=== PATIENT | male | born 1990 | race Hispanic/Latino ===

== ENCOUNTER 2024-02-02 17:45 | Emergency (ER) | payer SELFPAY ==
[2024-02-02 17:55] VITALS: BP 133/74; PULSE 101; RESP 20; TEMP 37.9; O2SAT 98
--- NOTE | 2024-02-02 18:20 | ED.GENADULT ---
HPI - General Adult General Chief complaint: Skin/Abscess/Foreign Body Stated complaint: RASH History of Present Illness HPI narrative: 33-year-old male presented for complaint of poison genie rash to legs for 1 week. Has been using ivarest cream and taking Benadryl without significant improvement. Denies lip, tongue, or throat swelling, shortness of breath or wheezing. Denies changes to soap, detergent, lotion, or any other exposures. No one else in the house or any contacts with similar symptoms. Patient also reports body aches, fever, chills and sore throat last night. Endorses painful swallow. Took Tylenol about 1 hour lpta. Related Data Allergies Allergy/AdvReac Type Severity Reaction Status Date / Time No Known Allergies Allergy Verified 02/02/24 19:27 Review of Systems Review of Systems: CONSTITUTIONAL:reports body aches, fever, chills, sweats. EYES: Denies visual changes, redness, or discharge. ENT: reports sore throat Denies rhinorrhea, congestion, or otalgia. CARDIOVASCULAR: Denies chest pain, palpitations, or edema. RESPIRATORY: Denies dyspnea. GASTROINTESTINAL: Denies abdominal pain, nausea, vomiting, or diarrhea. SKIN: reports rash, itching MUSCULOSKELETAL: Denies back pain, joint pain, or myalgia. NEUROLOGIC: Denies headache Exam Narrative: GENERAL: Mildly Ill-appearing, no acute distress. EYES: conjunctivae clear ENT: Mucous membranes moist. TM pearly joyce with normal light reflex bilaterally; no tragal tenderness. Oropharynx erythematous without lesions. Tonsils enlarged 2+ with exudate. No drooling, no hoarseness, no trismus, uvula midline. No tripod positioning, hot potato voice, or soft palate swelling. NECK: Supple. No lymphadenopathy CHEST: Clear to auscultation, breath sounds equal. No respiratory distress, speaks in full sentences. HEART: Regular rate and rhythm. No murmur heard. SKIN: Warm, dry scattered areas of vesicles on erythematous base noted to bilateral lower extremities consistent with contact dermatitis NEURO: Alert and oriented x3. Course Course Emergency Course: Patient is aware of diagnosis, understands and agrees to treatment plan. Anticipatory guidance given. Patient agrees to follow-up as directed and is aware of reasons to seek care at the emergency department. Portions of this record may have been created with voice recognition software Level of Care: Express Care Visit Vital Signs Vital signs: Vital Signs Temperature 100.3 F H 02/02/24 17:55 Pulse Rate 101 H 02/02/24 17:55 Respiratory Rate 20 02/02/24 17:55 Blood Pressure 133/74 02/02/24 17:55 Pulse Oximetry 98 02/02/24 17:55 Oxygen Delivery Room Air 02/02/24 17:55 Temperature 100.3 F H 02/02/24 17:55 Pulse Rate 101 H 02/02/24 17:55 Respiratory Rate 20 02/02/24 17:55 Blood Pressure 133/74 02/02/24 17:55 Pulse Oximetry 98 02/02/24 17:55 Oxygen Delivery Room Air 02/02/24 17:55 Medical Decision Making MDM Narrative Medical decision making narrative: POS strep. Discussed physical exam findings c/w contact dermatitis. Reviewed prescriptions. Advised supportive measures and signs/symptoms to go to the ER. Pt is appropriate for outpt treatment and f/u. Patient is primarily Hungarian-speaking, requested translates. Differential Diagnosis Differential Diagnosis: Viral exanthema, contact dermatitis, allergic dermatitis, eczema, urticaria, insect bites, impetigo, tinea, folliculitis Influenza, covid, sinusitis, OM, strep pharyngitis, URI Vital Signs Vital Signs: Vital Signs Temperature 100.3 F H 02/02/24 17:55 Pulse Rate 101 H 02/02/24 17:55 Respiratory Rate 02/02/24 17:55 Blood Pressure 133/74 02/02/24 17:55 Pulse Oximetry 98 02/02/24 17:55 Oxygen Delivery Room Air 02/02/24 17:55 Temperature 100.3 F H 02/02/24 17:55 Pulse Rate 101 H 02/02/24 17:55 Respiratory Rate 20 02/02/24 17:55 Blood Pressure 133/74 02/02/24 17:5
== END 2024-02-02 18:50 | disposition home or self-care (01) ==
PROVIDERS: Emergency Provider Nurse Practitioner Family
DX: J02.0 Streptococcal pharyngitis (principal); L25.9 Unspecified contact dermatitis, unspecified cause; Z20.822 Contact with and (suspected) exposure to COVID-19
CPT/HCPCS: 87426; 87804; 87880; 99213; G0463